=== PATIENT | female | born 1965 | race Caucasian/White ===

== ENCOUNTER 2017-03-24 17:19 | Emergency (ER) | payer OTHER ==
[~2017-03-24] VITALS: Ht 175.3 cm; Wt 71.2 kg
[~2017-03-24 17:19] MED LIST: VICODIN 5/500 T1 TAB PO; VOLTAREN75 MG PO
--- OUTSIDE RECORDS SUMMARY | 2017-03-24 17:25 | External Medical Summary Rpt ---
Author Author , Organization [employer] Address Unknown Phone Unavailable Purpose Continuity of Care Document - through 2016
--- OUTSIDE RECORDS SUMMARY | 2017-03-24 17:25 | External Medical Summary Rpt ---
Author Author [employer] Organization [employer] Address Unknown Phone Unavailable
--- OUTSIDE RECORDS SUMMARY | 2017-03-24 17:25 | External Medical Summary Rpt ---
Author Author [employer] Organization [employer] Address Unknown Phone Unavailable Purpose Continuity of Care Document - through 2016
[2017-03-24 17:59] LABS: URINE BILIRUBIN - DIPSTICK 1+ (NEG); URINE BLOOD 3+ (NEG)
[2017-03-24] MEDS ORDERED: BACTRIM DS 8001 TA1 PO (18:12)
[2017-03-24] MEDS ORDERED: PYRIDIUM200 M2 PO (18:12)
--- NOTE | 2017-03-24 18:12 | Urgent Treatment Center Report ---
History of Present Issue Date/Time Seen by Provider 03/24/171802 Visit Reason Pt arrived:Walked Presenting Problem:PT C/O PAIN AND BURNING WITH URINATION THAT BEGAN THIS MORNING. PT ALSO NOTES BLOOD IN HER URINE Location if Accident: Onset of symptoms date/time:/ or onset unknown for:MEDICAL HX UNKNOWN Have you (or family members/close friends) recently traveled outside the [place]? N If Yes, where/when: Have you had exposure to infectious disease within the past month? TB? Other? Specify: c/o "I am sure a UTI". Hx of UTIs, last one > 3 months ago. Started w/ bladder pressure yesterday but today, frequency, dysuria, hesitantcy, blood noticed w/ wiping. Denies fever, aches, chills, back pain, vaginal discharge, abdominal pain, "not yet anyways". Hasn't taken or tried anything for symptoms. "When I get them, they get back quick and once, I was in the hospital for it". Source patient Exam Limitations no limitations ALLERGIES Coded Allergies: Penicillins (Mild, 03/24/17) erythromycin base (Mild, 03/24/17) Home Medications Active Scripts Diclofenac Sodium (Voltaren 75mg (GEQ)) 75 MG PO BID 7 Days Prov: 07/23/09 Acetaminophen/Hydrocodone Bi (Vicodin) 1 TAB PO Q6H PRN 3 Days Prov: 07/23/09 History Medical History General CAD? No Angina: No MS: No Hypertension? No Hyperlipidemia? No CHF? No DVT? No PE? No COPD? No Asthma? No Anemia? No GERD? No Gastric ulcers? No GI Bleed? No Hernia? No Thyroid Problems? No Hypothyroidism? No CVA? No Seizures? No Diabetes? No Renal Insuffiency? No UTI? Yes Stones? Yes BPH? No GB Disease: Yes Nephritic Syndrome? No Asplenia? No Hepatitis? No Sickle Cell Disease? No Arthritis? No Migraines? No Cataracts? No Glaucoma? No MRSA? No HIV? No TB? No Anxiety? No Depression? No Cancer? No More? No Immunization HX DT/Tetanus 1-4 YRS Flu THIS YR Pneumonia NEVER Surgical Hx Previous Surgery?Y Mastectomy Hysterect Tonsils Tubal Ligation LAP SASCHA Family History Family HX Diabetes Yes CAD Yes Hypertension Yes Hyperlipidemia Yes Cancer No TB No Social History Smoking Hx Smoker: Current Every Day Smoker Tobacco: Yes Type Cigarettes Alcohol Alcohol: No Review of Systems All Other Systems Reviewed and Negative Constitutional see HPI Gastrointestinal diarrhea (once this morning), denies nausea, denies vomiting Genitourinary see HPI. Musculoskeletal see HPI Physical Exam Vital Signs Vital Signs Date Time Temp Pulse Resp B/P Pulse O2 O2 Flow FiO2 Ox Delivery Rate 03/24 1816 97.9 103 20 112/73 98 03/24 1737 97.9 103 20 112/73 98 General Appearance normal appearance, no apparent distress Respiratory Status No: respiratory distress. Cardiovascular no peripheral edema Gastrointestinal normal bowel sounds, non tender, soft, mild suprapubic tenderness, no bladder distention Back no CVA tenderness Neurologic alert Skin normal color, warm/dry Medical Decision Making LABS/Meds/Orders Pt receiving controlled substance in ED? No Results/Orders Laboratory Tests 03/24/171729: Urine Color DARK YELLOW, Urine Appearance Cloudy, Urine pH 7.5, Ur Specific [place] 1.020, Urine Protein >=300, Urine Ketones TRACE H, Urine Blood 3+ H, Urine Nitrate NEGATIVE, Urine Bilirubin 1+ H, Urine Urobilinogen 1.0, Ur Leukocyte Esterase 2+ H, Urine Glucose NEGATIVE Orders Procedure Date/time Status [facility] URINE DIPSTICK 03/24 1730 Complete Departure Departure Time of Disposition 1809 Disposition DC Home or Self Care(routine) Clinical Impression Primary Impression: UTI (urinary tract infection) Qualifiers: Urinary tract infection type: site unspecified Hematuria presence: with hematuria Qualified Code: N39.0 - Urinary tract infection, site not specified Condition STABLE Referrals Noah LINDA,Joe Thomas (Family) * Be SURE to follow up anytime for new or worsening symptoms, if no improvement in 48 hours AND in 10-14 days to repeat UA and ensure infection resolved and blood no longer present. Patient Instructions DI for Urinary Tract Infection (UTI) Additional Instructions * increase fluids, Water and NOT soda or tea * Start antibiotic immediately and be sure to take as ordered for the FULL length of time although you should start to see improvement over the next 48 hours. * pyridium as needed. Remember this will turn your urine ORANGE, this is normal but will stain whatever it gets on * You should not need the pyridium longer than 48 hours. If so, follow up with primary care to review urine culture and ensure antibiotic is adequate * Be SURE to follow up anytime for new or worsening symptoms, if no improvement in 48 hours AND in 10-14 days to repeat UA and ensure infection resolved and blood no longer present. * Be sure to let your PCP (or whoever you follow up with) know we sent urine culture so they can request records and ensure you are on the appropriate antibiotic if you are not getting better or getting worse!!! Discharge Counseling Counseled pt/family regarding diagnosis, test results, medications/RX, home care, follow up needs Prescriptions Current Visit Scripts SULFAMETHOXAZOLE W/TRIMETHOPRI (Bactrim Ds Tab) 1 TABLET PO BID #14 TAB Phenazopyridine HCl (Pyridium) 200 MG PO TIDP PRN dysuria #6 TAB at 1396
[2017-03-24 18:16] VITALS: BP 112/73
== END 2017-03-24 18:16 | disposition home or self-care (01) ==
LOC: UTC 17:19
PROVIDERS: Nurse Practitioner Family
DX: N39.0 Urinary tract infection, site not specified (principal); Z72.0 Tobacco use